=== PATIENT | female | born 1985 | race Caucasian/White ===

== ENCOUNTER → 2017-07-24 | Outpatient (CLI) | payer OTHER ==
--- NOTE | 2017-07-24 15:26 | RAD ---
EXAM: CHEST 2 VIEWS History: Chest congestion, cough COMPARISON: None available. TECHNIQUE: PA and lateral chest radiographs FINDINGS: The cardiomediastinal silhouette is within normal limits. The lungs are clear bilaterally. The costophrenic sulci are clear and well demarcated bilaterally. IMPRESSION: No radiographic evidence of an acute cardiopulmonary abnormality.
== END | disposition home or self-care (01) ==
LOC: PMG 14:55
PROVIDERS: ATTEND Physician Assistant Medical
DX: R09.89 Other specified symptoms and signs involving the circulatory and respiratory systems (principal); R05 Cough
CPT/HCPCS: 71046

== ENCOUNTER → 2019-04-02 | Outpatient (CLI) | payer OTHER ==
--- NOTE | 2019-04-02 21:08 | RAD ---
Examination: FOOT LEFT 3V History: Injury, fall, pain Comparison/Correlation: None Findings: Total 3 images of the left foot were obtained. Comminuted left great toe proximal phalanx fractures are present. These are present within the mid shaft and extend distally intra-articularly. Plantar angulation at the mid shaft site is noted. Bony structures otherwise are unremarkable. Impression: Comminuted left great toe proximal phalangeal fractures. Intra-articular extension distally. Electronically signed by: Mario Gutierrez MD (04/02/2019 9:05 PM) [id number]
== END | disposition home or self-care (01) ==
LOC: RAD 17:55
PROVIDERS: ATTEND Family Medicine
DX: S92.412A Displaced fracture of proximal phalanx of left great toe, initial encounter for closed fracture (principal); W19.XXXA Unspecified fall, initial encounter; Y93.89 Activity, other specified; Y92.89 Other specified places as the place of occurrence of the external cause; Y99.8 Other external cause status
CPT/HCPCS: 73630